=== PATIENT | female | born 1945 | race Caucasian/White ===

== ENCOUNTER 2018-08-23 21:13 | Observation (INO) | payer MEDICARE, OTHER ==
--- NOTE | 2018-08-23 21:55 | ED ---
Neurological HPI - HPI Summary HPI Summary: A 73 y/o female presents to the ED c/o difficulty finding her words. Additionally c/o headache. In the ED room, the patient has a pulse of 72 BPM, O2 saturation of 96%, and blood pressure of 159/78. Currently, the patient reports no pain or symptoms at this time. As per triage, "Pt states last night she had a brief episode of difficulty finding her words coupled with a headache. States after about five minutes she came up with some words but did not make sense in the situation she was in. States she called PCP after hours number and informed to come in for further evaluation. Pt states since last night all s/s have resolved". According to the patient, yesterday for five minutes she was incoherent. She stated that she could hear, but for those five minutes she could not get her words out. She noted that the symptoms she was experiencing was coupled with a low-grade headache that lasted for a couple hours. She noted prior to the symptoms, she was fine. She stated that she normally has low blood pressure, but today it is usually high. She denies any weakness, strokes, and irregular heartbeats. SHx of no smoking, but does have 1 glass of wine at night. No medications. - History of Current Complaint Chief Complaint: EDGeneral Stated Complaint: GENERAL Time Seen by Provider: 08/23/18 21:31 Hx Obtained From: Patient Onset/Duration: Sudden Onset, Started days ago, Resolved Timing: Sudden Onset Current Severity: None Number of Seizures: 0 Pain Intensity: 0 Pain Scale Used: 0-10 Numeric Character: Other: - DIFFICULT FINDING HER WORDS Syncope Timin Number of Episodes: 0 Aggravating: Nothing Alleviating: Nothing Associated Signs and Symptoms: Positive: Headache - RESOLVED - Allergy/Home Medications Allergies/Adverse Reactions: Allergies Allergy/AdvReac Type Severity Reaction Status Date / Time Penicillins Allergy Rash Verified 08/23/18 21:20 Sulfa (Sulfonamide Allergy Facial Verified 08/23/18 21:20 Antibiotics) Redness/Flushing KIWI FRUIT Allergy Severe EYE Uncoded 08/23/18 21:20 SWELLING PMH/Surg Hx/FS Hx/Imm Hx Endocrine/Hematology History: Denies: Hx Anticoagulant Therapy, Hx Blood Disorders, Hx Blood Transfusions, Hx Diabetes, Hx Sickle Cell Disease, Hx Thyroid Disease, Hx Anemia, Hx Unexplained Bleeding Cardiovascular History: Denies: Hx Hypertension Respiratory History: Denies: Hx Asthma, Hx Chronic Obstructive Pulmonary Disease (COPD) GI History: Denies: Hx Cirrhosis, Hx Crohn's Disease, Hx Diverticulosis, Hx Gastrointestinal Bleed, Hx Hiatal Hernia, Hx Irritable Bowel, Hx Jaundice, Hx Obstructive Bowel, Hx Ileostomy, Hx Ulcer Musculoskeletal History: Reports: Hx Arthritis, Hx Back Problems, Hx Tendonitis Denies: Hx Bursitis, Hx Congenital Bone Abnormalities, Hx Fibromyalgia, Hx Gout, Hx Orthopedic Injury, Hx Osteoporosis - osteopenia, Hx Scoliosis Sensory History: Reports: Hx Contacts or Glasses, Hx Vision Problem Denies: Hx Eye Prosthesis, Hx Glaucoma, Hx Macular Degeneration, Hx Deafness , Hx Hearing Aid Opthamlomology History: Reports: Hx Contacts or Glasses, Hx Vision Problem Denies: Hx Eye Prosthesis, Hx Glaucoma, Hx Macular Degeneration - Surgical History Surgery Procedure, Year, and Place: PER PATIENT, NO PRIOR SURGERIES NOTED. Infectious Disease History: No Infectious Disease History: Denies: Hx Clostridium Difficile, Hx Hepatitis, Hx Human Immunodeficiency Virus (HIV), Hx of Known/Suspected MRSA, Hx Shingles, Hx Tuberculosis, Hx Known/ Suspected VRE, Hx Known/Suspected VRSA, History Other Infectious Disease, Traveled Outside the [place] in Last 30 Days - Family History Known Family History: Negative: Hypertension, Diabetes - Social History Alcohol Use: Daily Alcohol Amount: GLASS OF WINE Substance Use Type: Reports: None Smoking Status (MU): Never Smoked Tobacco Review of Systems Negative: Fever Negative: Palpitations Neurological: Other - POSITIVE: DIFFICULT FINDING HER WORDS, RESOLVED Positive: Headache - RESOLVED. Negative: Weakness All Other Systems Reviewed And Are Negative: Yes Physical Exam - Summary Physical Exam Summary: Appearance: Well appearing, no pain distress. Normal exam. Skin: warm, dry, reflects adequate perfusion Head/face: normal Eyes: EOMI, MIRA ENT: normal Neck: supple, non-tender Respiratory: CTA, breath sounds present Cardiovascular: RRR, pulses symmetrical Abdomen: non-tender, soft Musculoskeletal: normal, strength/ROM intact Neuro: normal, sensory motor intact, A&Ox3 NIH: 0 GCS: 15 Triage Information Reviewed: Yes Vital Signs On Initial Exam: Initial Vitals Temp Pulse Resp BP Pulse Ox 99.4 F 74 16 166/66 100 08/23/18 21:14 08/23/18 21:14 08/23/18 21:14 08/23/18 21:14 08/23/18 21:14 Vital Signs Reviewed: Yes - Chavo Coma Scale Best Eye Response: 4 - Spontaneous Best Motor Response: 6 - Obeys Commands Best Verbal Response: 5 - Oriented Coma Scale Total: 15 Diagnostics - Vital Signs Vital Signs Temp Pulse Resp BP Pulse Ox 08/23/18 21:14 99.4 F 74 16 166/66 100 - Laboratory Result Diagrams: 08/23/18 21:45 08/23/18 21:45 Lab Statement: Any lab studies that have been ordered have been reviewed, and results considered in the medical decision making process. - CT BRAIN CT CT Interpretation Completed By: Radiologist Summary of CT Findings: 1. There is age-related diffuse cerebral and cerebellar volume loss and chronic microvascular ischemic disease. 2. No CT signs of hemorrhage or acute infarct. MRI brain with diffusion. weighted imaging is more accurate than CT for detection of acute infarct. ED PHYSICIAN REVIEWED THIS RADIOLOGY REPORT. - EKG 2146 Cardiac Rate: NL - 61 BPM EKG Rhythm: Sinus Rhythm - 61 BPM Summary of EKG Findings: LBBB NIH Scale - NIH Scale Level of Consciousness: Alert/Keenly Responsive Ask Patient the Month and His/Her Age: Both Correct Ask Pt to Open/Close Eyes and Animal Ecologist/Release Non-Paretic Hand: Both Correctly Best Gaze (Only Horizontal Eye Movement): Normal Visual Field Testing: No Visual Loss Facial Paresis-Pt to Smile & Close Eyes or Grimace Symmetry: Normal/Symmetrical Motor Function - Right Arm: No Drift-Holds 10 Seconds Motor Function - Left Arm: No Drift-Holds 10 Seconds Motor Function - Right Leg: No Drift-Holds 10 Seconds Motor Function - Left Leg: No Drift-Holds 10 Seconds Limb Ataxia-Must be out of Proportion to Weakness Present: Absent Sensory (Use Pinprick to Test Arms/Legs/Trunk/Face): Normal Best Language (Describe Picture, Name Items): No Aphasia Dysarthria (Read Several Words): Normal Extinction and Inattention: No Abnormality Total Score: 0 Course/Dx - Course Course Of Treatment: A 73 y/o female presents to the ED c/o difficulty finding her words. Additionally c/o headache. In the ED room, the patient has a pulse of 72 BPM, O2 saturation of 96%, and blood pressure of 159/78. Currently, the patient reports no pain or symptoms at this time. According to the patient, yesterday for five minutes she was incoherent. She stated that she could hear, but for those five minutes she could not get her words out. She noted that the symptoms she was experiencing was coupled with a low-grade headache that lasted for a couple hours. She noted prior to the symptoms, she was fine. She stated that she normally has low blood pressure, but today it is usually high. She denies any weakness, strokes, and irregular heartbeats. Physical examination was unremarkable. NIH stroke scale 0. A Brain CT revealed 1. There is age- related diffuse cerebral and cerebellar volume loss and chronic microvascular ischemic disease. 2. No CT signs of hemorrhage or acute infarct. MRI brain with diffusion weighted imaging is more accurate than CT for detection of acute infarct. GCS: 15. An EKG revealed NSR of 61 BPM, LBBB. Hematology, Chemistry, and urinalysis screens were done. No significant laboratory abnormalities were found. In the ED course, the patient received no medications. Patient care was discussed with hospitalist, Dr. Tamara Ruiz, who accepts patient for admission. Patient care was also discussed with neurologist, Dr. Marcelo, who will see patient in the morning. Patient will be admitted with a diagnosis of TIA. Patient is agreeable with this plan. - Differential Dx Differential Diagnoses Neuro: Positive: Cerebrovascular Accident, Intracranial Bleed, Transient Ischemic Attack - Diagnoses Provider Diagnoses: TIA (transient ischemic attack) - Physician Notifications Discussed Care Of Patient With: Tamara Ruiz Time Discussed With Above Provider: 22:40 Instructed by Provider To: Other - ACCEPTS PATIENT FOR ADMISSION. BRENT AT 2249 - WILL SEE PATIENT TOMORROW MORNING. - Critical Care Time Critical Care Time: 30-74 min Discharge - Sign-Out/Discharge Documenting (check all that apply): Patient Departure - ADMIT, Sign-Out Patient - PRESTON Signing out patient TO: Tamara Ruiz Receiving patient FROM: Musa Wiggins - Discharge Plan Condition: Stable Disposition: ADMITTED TO [facility] Referrals: Mile Ribeiro MD [Primary Care Provider] - - Billing Disposition and Condition Condition: STABLE Disposition: Admitted to [facility] - Attestation Statements Document Initiated by Scribe: Yes Documenting Scribe: Huseyin Macias Provider For Whom Scribe is Documenting (Include Credential): Musa Wiggins MD Scribe Attestation: I, Huseyin Macias, scribed for Musa Wiggins MD on 08/23/18 at 2346. Scribe Documentation Reviewed: Yes Provider Attestation: The documentation as recorded by the scribeHuseyin accurately reflects the service I personally performed and the decisions made by me, Musa Wiggins MD Status of Scribe Document: Viewed
[2018-08-23 21:57] LABS: ABS Basophils 0.1 10^3/ul (0-0.2); ABS Eosinophils 0.2 10^3/ul (0-0.6); ABS Monocytes 0.5 10^3/ul (0-0.8); ABS Neutrophils 3.9 10^3/ul (1.5-7.7); ABS Nucleated RBC 0 10^3/ul; Eosinophil % 3.1 %; Hematocrit 42 % (35-47); Hemoglobin 14.3 g/dl (12.0-16.0); Lymphocyte % 29.8 %; Mean Corpuscular HGB Conc 34 g/dl (31-36); Mean Corpuscular Hemoglobin 31 pg (27-31); Mean Corpuscular Volume 92 fL (80-97); Mean Platelet Volume 8.2 fL (7.4-10.4); Nucleated Red Blood Cells % 0; Platelet Count 252 10^3/ul (150-450); Red Blood Count 4.56 10^6/ul (4.00-5.40); Red Cell Distribution Width 13 % (10.5-15); White Blood Count 6.6 10^3/ul (3.5-10.8)
[2018-08-23 22:06] LABS: Activated Partial Thrombo Time 32.7 seconds (26.0-36.3); INR 0.83 (0.77-1.02)
[2018-08-23 22:11] LABS: Albumin 4.2 g/dL (3.2-5.2); Albumin/Globulin Ratio 1.7 (1-3); BUN/Creatinine Ratio 28.6 (8-20); Calcium 9.6 mg/dL (8.6-10.3); EGFR Non-African American 73.5 (>60); Globulin 2.5 g/dL (2-4); Total Bilirubin 0.4 mg/dL (0.2-1.0); Total Protein 6.7 g/dL (6.4-8.9)
[2018-08-23 22:48] LABS: Urine Appearance Clear; Urine Bacteria Absent (Absent); Urine Bilirubin Negative (Negative); Urine Blood Negative (Negative); Urine Color Straw; Urine Glucose Negative (Negative); Urine Ketones Negative (Negative); Urine Nitrite Negative (Negative); Urine Protein Negative (Negative); Urine Red Blood Cell Absent (Absent); Urine Specific Gravity 1.008 (1.010-1.030); Urine Urobilinogen Negative (Negative); Urine White Blood Cell 1+(6-10/hpf) (Absent)
[2018-08-23] MEDS ORDERED: Acetaminophen TAB* 325 MG PO PRN (23:35)
[2018-08-24] MEDS: Aspirin 81 mg CHEW TAB* 81 MG TAB.CHEW PO SCH ×2 (01:08→07:29)
--- NOTE | 2018-08-24 02:26 | HP ---
CC: Dr. Mile Ribeiro * HISTORY AND PHYSICAL: DATE OF ADMISSION: 08/23/18 PRIMARY CARE PROVIDER: Dr. Mile Ribeiro. CHIEF COMPLAINT: An episode of difficulty word-finding 24 hours prior. HISTORY OF PRESENT ILLNESS: Mrs. York is a 73-year-old female with no significant past medical history apart from 2 episodes of Lyme in the past, who presented to the hospital 24 hours after an episode of problems with word- finding. 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 She was at the [employer] and she walked into the room where she would teach and she noticed that the lights were awfully bright, and at the same point, she had mild frontal headache and was unable to find words to communicate something with one of the prisoners. She stated that instead other words came out that were entirely different. She does not remember what she said at that point, but she denies any slurred speech. She stated that all of that lasted approximately 5 minutes and resolved spontaneously. The headaches resolved also. The patient stated that she in the past had not been prone to headaches and the headache was very mild. She has not had anything unusual happen to her before and after the episode. She called Dr. Varela today to communicate the concerns about the problems that had occurred last night and she was asked to come into the ED for evaluation. Here, she is neurologically intact and she is going to be placed on overnight observation with a diagnosis of possible TIA. PAST MEDICAL HISTORY: 1. History of mild arthritis. 2. History of dyslipidemia, currently not on treatment. 3. History of Lyme twice in the past. PAST SURGICAL HISTORY: None. MEDICATIONS: Current medications are [id number] arthritis medications as well as multivitamin. She does not take aspirin. ALLERGIES: Includes PENICILLIN, SULFA, and KIWI FRUIT. FAMILY HISTORY: Positive for 2 strokes in father and mother who had history of heart disease, at the age of 93. SOCIAL HISTORY: The patient denies any tobacco or drug use. She drinks a glass of wine almost on a daily basis. She lives with her who would be her surrogate. She is a full code. REVIEW OF SYSTEMS: Please see history of present illness. All the remaining 12 systems were reviewed with the patient and were otherwise negative. PHYSICAL EXAMINATION GENERAL: The patient is a very pleasant 73-year-old female, who is in no acute distress. Alert, awake, and oriented x3. VITAL SIGNS: Blood pressure of 153/77, heart rate of 79 and regular, respiratory rate 18, oxygen saturation 97% on room air, temperature of 99.4. HEENT: Head: Atraumatic, normocephalic. Eyes: Pupils are equal, reactive to light and accommodation. Oropharynx clear. Mucosa moist. NECK: Supple. No JVD. No bruits bilaterally. RESPIRATORY: Clear to auscultation bilaterally. CARDIOVASCULAR: Regular rate and rhythm. No murmur. ABDOMEN: Soft, nontender. Bowel sounds are present in all 4 quadrants. EXTREMITIES: There is no edema. Pulses are +2 bilaterally. No clubbing or cyanosis. NEURO EVALUATION: Speech is clear. Cranial nerves II through XII are grossly intact. Motor strength is 5/5 bilaterally. SKIN: On evaluation of the skin, no ecchymotic areas or rashes noted. PSYCHIATRIC EVALUATION: Oriented x3 with no evidence of anxiety or depression. DIAGNOSTIC STUDIES/LAB DATA: Laboratory data showed a white blood cell count of 6.6, hemoglobin of 14.3, hematocrit of 42, and platelets of 152. Sodium was 139, potassium 4.0, chloride 107, carbon dioxide 24, BUN 22, creatinine 0.7. Liver functions are unremarkable. Troponin of 0. Brain CT, impression: "There is age-related diffuse cerebellar volume loss and chronic microvascular ischemic disease. No CT signs of hemorrhage or acute infarct. MRI with diffusion-weighted imaging is more accurate than CT for detection of acute infarct." The patient's EKG showed left bundle-branch block. There was no old EKG available for comparison. ASSESSMENT AND PLAN: 1. Symptoms of difficulty word-finding in patient who also at that point had noted that the lights were very bright and she had at that point what appeared to be mild photophobia and mild headache. At this point, differential includes transient ischemic attack versus atypical migraine. The patient is going to be placed on overnight observation on planning and analysis manager bed. Dr. Marcelo was notified from neurology service and will see the patient in the morning. The patient is going to be placed on aspirin at 81 mg daily. Her lipid profile was also going to be checked in the morning. Neuro checks are going to be continued throughout her hospital stay. I will obtain echo with bubble study as well as CT angiogram of the head and neck. Unfortunately, we do not have MRI capabilities over the weekend unless it is recommended further by Neurology. 2. Left bundle-branch block. The patient has no history of left bundle-branch block according to her medical records and there is no old EKG available in the system. I will obtain transthoracic echocardiogram to evaluate it further. 3. The patient's code status is full. 4. For DVT prophylaxis, the patient is going to be placed on heparin subcutaneously. TIME SPENT: Approximately 62 minutes were spent on the admission of this patient, more than half that time was spent [id number] with the patient during the interview and physical exam. [id number] #: [id number] RACHNA
[2018-08-24 05:17] LABS: HDL Cholesterol 69.4 mg/dL
[2018-08-24] MEDS ORDERED: Heparin VIAL(*) 5000 UNITS/ML VIAL (FIVE THOUSAND) SUBCUT SCH (06:00)
[2018-08-24] MEDS ORDERED: Iohexol 350* (CONTRAST) 500 ML MDV IV ONE (08:29)
[2018-08-24 08:55] VITALS: BP 126/58
--- NOTE | 2018-08-24 10:53 | PN ---
Subjective - Subjective Reason for Note: Discharge Note History: Discharge summary: She called me last night at 20:30. 25 hours before she had an episode of dysphasia with word finding difficulties for 5 mins and this was followed by headache for 2 hours. She has had neurological symptoms since. She has been in the hospital overnight and is feeling back to normal today. Active Problems: Active Problems Dysphasia (Acute) R47.02 TIA (transient ischemic attack) (Acute) G45.9 Hypercholesterolemia (Chronic) E78.00 LBBB (left bundle branch block) (Chronic) I44.7 Current Medications: Current Medications Acetaminophen (Tylenol Tab*) 650 mg PO Q4H PRN PRN Reason: FEVER/PAIN Aspirin (Aspirin 81 Mg Chew Tab*) 81 mg PO DAILY [facility] Last Admin: 08/24/18 07:29 Dose: 81 mg Heparin Sodium (Porcine) (Heparin Vial(*)) 5,000 units SUBCUT Q8HR [facility] Last Admin: 08/24/18 04:58 Dose: Not Given - Review of Systems Pulmonary: Negative: Cough, Sputum Cardiology: Negative: Chest Pain, Shortness of Breath, Palpitations, Swelling of Ankles, Edema, Faintness, Syncope, Claudication Gastroenterology: Negative: Abdominal Pain, Nausea, Vomiting, Change in Bowel Habits Genital - Urinary: Negative: Dysuria, Hematuria Neurology: Positive: Change in Speech Negative: Headache, Migraines, Change in Vision, Diplopia, Dizziness, Change in Balancing, Change in Sphincter Function, Change in Walking, Numbness\ Paresthesiae, Unexplained Weakness, Hx of Stroke\TIA, Hx of Seizures Psychiatry: Positive: Normal Home Medications: Home Medications Medication Instructions Recorded Confirmed Type Bifidobacterium Infantis [Align] 4 mg PO DAILY 10/17/13 08/24/18 History Calcium Carbonate-Vitamin D 1 tab PO DAILY 10/17/13 08/24/18 History [Calcium 600 + D] Glucosamine Sulfate [Glucosamine] 500 mg PO DAILY 10/17/13 08/24/18 History Multivitamins/Minerals TAB* [Thera 1 tab PO DAILY 10/17/13 08/24/18 History M Plus TAB*] Phytosterol/Vit D3/Fish Oil 1 cap PO DAILY 10/17/13 08/24/18 History [Cholesterol Relief] Allergies: Allergies Allergy/AdvReac Type Severity Reaction Status Date / Time Penicillins Allergy Rash Verified 08/24/18 00:16 Sulfa (Sulfonamide Allergy Facial Verified 08/24/18 00:16 Antibiotics) Redness/Flushing KIWI FRUIT Allergy Severe EYE Uncoded 08/24/18 00:16 SWELLING Objective - Vital Signs Vital Signs: Vital Signs 08/23/18 08/23/18 08/23/18 21:14 21:29 21:30 Temperature 99.4 F Pulse Rate 74 68 71 Respiratory 16 Rate Blood Pressure 166/66 159/78 (mmHg) O2 Sat by Pulse 100 97 96 Oximetry 08/23/18 08/23/18 08/23/18 22:00 22:59 23:00 Temperature Pulse Rate 70 79 79 Respiratory 19 18 Rate Blood Pressure 153/77 (mmHg) O2 Sat by Pulse 97 97 97 Oximetry 08/23/18 08/23/18 08/24/18 23:29 23:59 00:00 Temperature Pulse Rate 73 72 Respiratory 15 18 18 Rate Blood Pressure 135/82 132/63 (mmHg) O2 Sat by Pulse 94 95 Oximetry 08/24/18 08/24/18 08/24/18 00:19 01:09 01:10 Temperature 98.4 F 98.4 F 98.4 F Pulse Rate 70 66 66 Respiratory 16 16 16 Rate Blood Pressure 132/63 144/59 144/59 (mmHg) O2 Sat by Pulse 94 97 97 Oximetry 08/24/18 08/24/18 03:24 07:25 Temperature 97.8 F 98.2 F Pulse Rate 57 58 Respiratory 16 20 Rate Blood Pressure 130/53 126/58 (mmHg) O2 Sat by Pulse 99 97 Oximetry - Intake and Output Intake and Output: Intake & Output 08/21/18 08/22/18 08/23/18 08/24/18 11:59 11:59 11:59 11:59 Intake Total 230 Balance 230 Weight 122 lb Intake: Oral 230 ADLs: Meal Record Start: 08/24/18 00: 15 Freq: DAILY@0900,1400,1800 Status: Active Protocol: Created 08/24/18 00:15 System (Rec: 08/24/18 00:15 System [email or web address]) Document 08/24/18 09:00 [id number] (Rec: 08/24/18 10:34 [id number]) Intake and Output Start: 08/23/18 21: 18 Freq: Status: Active Protocol: Created 08/23/18 21:18 System (Rec: 08/23/18 21:18 System [id number]) Intake and Output Start: 08/24/18 00: 15 Freq: DAILY@0600,1400,2200 Status: Active Protocol: Created 08/24/18 00:15 System (Rec: 08/24/18 00:15 System [id number]) Document 08/24/18 03:13 [id number] (Rec: 08/24/18 03:14 [id number]) - Physical Exam General Physical Exam Comment: She looks well General: No Cyanosis, No Anemia, No Jaundice, No Clubbing Skin: Normal: Rash, Lesions Head: Yes Normocephalic Thyroid Function: Clinically Euthyroid Endocrine: No Central Obesity, No Hirsuitism, No Virilism, No Acromegaly, No Vitiligo, No Flushing, No Acanthosis nigricans, No Violaceious striae, No [place] Syndrome, No Buccal pigmenatation, No Han Crease Pigmentation Lungs and Chest: Yes: Chest Expansion Full, Chest Expansion Symetrica, Percussion Note Resonant, Vessicular Breath Sounds. No: Crackles, Wheezes, Respiratory Distress, Use of Accessory Muscles Heart Rate and Rhythm: Regular JVP: Not Elevated Additional Cardiovascular: Yes: Normal Heart Sounds. No: Heart Murmur, Carotid Bruits, Pedal Edema Abdominal Exam: Yes: Soft, Bowel Sounds Present. No: Distention, Abdominal Mass , Hepatomegaly, Abdominal Tenderness - Extremities Cranial Nerves II-XII Intact: Yes Limbs: Normal Power, Normal Tone, Normal Coordination - finger nose, heel-flores, rapid alt movt Reflexes: Bilateral: Plantar - downgoing - Neuro Orientation: A/O x3 Psychiatric: Normal Speech: Normal Results - Results Lab Results: Laboratory Results - last 24 hr 08/23/18 08/23/18 08/23/18 21:45 21:45 21:45 WBC 6.6 RBC 4.56 Hgb 14.3 Hct 42 MCV 92 MCH 31 MCHC 34 RDW 13 Plt Count 252 MPV 8.2 Neut % (Auto) 59.2 Lymph % (Auto) 29.8 Pratt % (Auto) 7.0 Eos % (Auto) 3.1 Baso % (Auto) 0.9 Absolute Neuts (auto) 3.9 Absolute Lymphs (auto) 2.0 Absolute Monos (auto) 0.5 Absolute Eos (auto) 0.2 Absolute Basos (auto) 0.1 Absolute Nucleated RBC 0 Nucleated RBC % 0 INR (Anticoag Therapy) 0.83 APTT 32.7 Sodium 139 Potassium 4.0 Chloride 107 Carbon Dioxide 24 Anion Gap 8 BUN 22 Creatinine 0.77 Est GFR ( Amer) 88.9 Est GFR (Non-Af Amer) 73.5 BUN/Creatinine Ratio 28.6 H Glucose 115 H Calcium 9.6 Total Bilirubin 0.40 AST 18 ALT 12 Alkaline Phosphatase 56 Troponin I 0.00 Total Protein 6.7 Albumin 4.2 Globulin 2.5 Albumin/Globulin Ratio 1.7 Triglycerides Cholesterol LDL Cholesterol HDL Cholesterol Urine Color Urine Appearance Urine pH Ur Specific [place] Urine Protein Urine Ketones Urine Blood Urine Nitrate Urine Bilirubin Urine Urobilinogen Ur Leukocyte Esterase Urine WBC (Auto) Urine RBC (Auto) Urine Bacteria Urine Glucose 08/23/18 08/24/18 22:35 04:44 WBC RBC Hgb Hct MCV MCH MCHC RDW Plt Count MPV Neut % (Auto) Lymph % (Auto) Pratt % (Auto) Eos % (Auto) Baso % (Auto) Absolute Neuts (auto) Absolute Lymphs (auto) Absolute Monos (auto) Absolute Eos (auto) Absolute Basos (auto) Absolute Nucleated RBC Nucleated RBC % INR (Anticoag Therapy) APTT Sodium Potassium Chloride Carbon Dioxide Anion Gap BUN Creatinine Est GFR ( Amer) Est GFR (Non-Af Amer) BUN/Creatinine Ratio Glucose Calcium Total Bilirubin AST ALT Alkaline Phosphatase Troponin I Total Protein Albumin Globulin Albumin/Globulin Ratio Triglycerides 55 Cholesterol 225 LDL Cholesterol 145 HDL Cholesterol 69.4 Urine Color Straw Urine Appearance Clear Urine pH 5.0 Ur Specific [place] 1.008 L Urine Protein Negative Urine Ketones Negative Urine Blood Negative Urine Nitrate Negative Urine Bilirubin Negative Urine Urobilinogen Negative Ur Leukocyte Esterase 2+ A Urine WBC (Auto) 1+(6-10/hpf) A Urine RBC (Auto) Absent Urine Bacteria Absent Urine Glucose Negative Radiology Results: Patient Name: RADHA SORTO Medical Record#: [id number] Ordering Physician: Musa Wiggins MD Acct.#: [id number] : 1945 Age: 73 Sex: F Location: EMERGENCY DEPARTMENT Exam Date: 08/23/182136 ADM Status: REG ER Order Information: CT BRAIN WO Accession Number: [id number] CPT: 67993 EXAM: CT Head Without Contrast EXAM DATE/TIME: 08/23/2018 9:58 PM CLINICAL HISTORY: 73 years old, female; Signs and symptoms; Speech disturbance; Aphasia; Additional info: Aphasia yesterday TECHNIQUE: Axial computed tomography images of the head/brain without contrast. All CT scans at this facility use at least one of these dose optimization techniques: automated exposure control; mA and/or kV adjustment per patient size (includes targeted exams where dose is matched to clinical indication); or iterative reconstruction. COMPARISON: BRAIN WO CT BRAIN WO 10/17/2013 10:50 AM FINDINGS: Brain: There is age-related diffuse cerebral and cerebellar volume loss and chronic microvascular ischemic disease. Ventricles: Normal. No ventriculomegaly. Bones/joints: Normal. No acute fracture. Sinuses: Normal as visualized. No acute sinusitis. Mastoid air cells: Normal as visualized. No mastoid effusion. Soft tissues: Normal. IMPRESSION: 1. There is age-related diffuse cerebral and cerebellar volume loss and chronic microvascular ischemic disease. 2. No CT signs of hemorrhage or acute infarct. MRI brain with diffusion weighted imaging is more accurate than CT for detection of acute infarct. To contact [facility] with a general question: [facility] - [phone] For direct physician to physician contact: Physician Hotline - [phone] [facility] ([facility] Facility ID #[id number]) <Electronically signed by Cj Felix MD in OV> 08/23/182239 Dictated By: Cj Felix MD Dictated Date/Time: 08/23/182239 Patient Name: RADHA SORTO Marta Medical Record#: [id number] Ordering Physician: Tamara Ruiz MD Acct.#: [id number] : 1945 Age: 73 Sex: F Location: [address] [place] [address] MEDICAL/TELEMETRY Exam Date: 08/24/18 0700 ADM Status: ADM Mu Order Information: CTA HEAD/NECK Accession Number: [id number] CPT: 17919 Indication: Transient ischemic attack Contrast: Administered 80.2 ml of OMNIPAQUE 350 mg/ml CTA of the neck and head was performed after IV contrast administration. Coronal and sagittal reconstructed images were obtained. The aortic arch is unremarkable. The origins of the great vessels are unremarkable. Bilaterally the common carotid arteries demonstrates normal caliber. The internal carotid arteries demonstrates no evidence of calcific plaque. The cervical portions of the internal carotid artery demonstrates no carotid artery dissection. The vertebral arteries demonstrates normal origins. Vertebral arteries demonstrate normal caliber with a dominant left vertebral artery. No vertebral artery dissection is noted. Evaluation of the intracranial vessels demonstrates the intracavernous portions of the internal carotid arteries to be unremarkable. Anterior and middle cerebral arteries are unremarkable. Ophthalmic arteries are unremarkable. No aneurysmal dilatation or branch occlusion is identified. The basilar artery and posterior cerebral arteries are grossly unremarkable with no evidence of aneurysmal dilatation or branch occlusion. The oral pharynx and nasopharynx are grossly unremarkable. No prevertebral soft tissue swelling is noted. Submandibular glands are unremarkable. Paranasal sinuses are otherwise unremarkable. IMPRESSION: No evidence of carotid artery dissection or vertebral artery dissection. No definite evidence of plaque at the carotid artery bifurcation. Minimal calcific plaque is noted in the right internal carotid artery in the intracavernous portion. No aneurysmal dilatation or branch occlusion is identified. <Electronically signed by Alicia Watters MD in OV> 08/24/18911 Dictated By: Alicia Watters MD Dictated Date/Time: 08/24/18911 Transcribed Date/Time: 08/24/18908 Copy to: EKG Report: Sinus rhythm 61 TN 202 QTC 432 QRS axis 5 LBBB Assessment - Problem List Assessment: Patient Problems Dysphasia (Acute) TIA (transient ischemic attack) (Acute) Hypercholesterolemia (Chronic) LBBB (left bundle branch block) (Chronic) Plan: Dysphasia (Acute)TIA (transient ischemic attack) (Acute) She had a brief (5 mins) transient dysarthria. She has no history of TIAs, strokes, CAD. She has had no history of seizures or migraines. From history this is consistent with a TIA. She has had no hemorrhage and there is no evidence of significant stenosis on CTA. She is currently having a transthoracic echocardiogram. This is Saturday before X-mas and scheduling an MRI is going to be tricky and won't affect acute management. I spoke with neurology and they agreed with management plan: Aspirin 81 mg qdaily, statin and outpatient early MRI (Open MRI as patient is claustraphobic Hypercholesterolemia (Chronic) She has an elevated LDL (though her HDL is good) . I will start her on atorvastatin 20 mg qhs LBBB (left bundle branch block) (Chronic) She has not had a previous EKG for years. We are checking a transthoracic echocardiogram. I spoke with the patient. She would like to go home and not wait for a work up as an inpatient. * To start aspirin and a statin * Arrange with Dr. Mile Ribeiro an outpatient open MRI LILI * Call if any further episodes.
--- NOTE | 2018-08-24 12:20 | ECHO ---
Patient: RADHA SORTO [facility] Rec#: [id number] : 1945 Date: 08/24/2018 Age: 73y Height: 162.56 cm / 64.0 in Weight: 56.25 kg / 124.0 lbs Sex: F BSA: 1.6 Room#: 433 Admit Date#: 08/23/2018 Type: Inpatient Referring: Tamara Ruiz MD Reading: Taj Israel MD Surety Bond Agent: Dai Banks HOSSEIN CC: Mile Ribeiro MD Transthoracic Echocardiogram Indication: TIA BP: 130/53 HR: 112 Rhythm: NSR Findings History: Lyme disease,arthritis,HLD,+ family history,LBBB. Technical Comments: The study quality is good. Completed at 1136. Left Ventricle: The left ventricular chamber size is decreased. Mild global hypokinesis of the left ventricle is observed. There is mildly decreased left ventricular systolic function. The estimated ejection fraction is 45-50%. Abnormal left ventricular diastolic function is observed. Left Atrium: The left atrial chamber size is normal. Right Ventricle: The right ventricular cavity size is normal. The right ventricular global systolic function is normal. Right Atrium: The right atrial cavity size is normal. There is evidence of an atrial septal aneurysm. Noted as slight. Aortic Valve: The aortic valve is trileaflet. There is no evidence of aortic valve thickening. There is mild aortic regurgitation. There is no evidence of aortic stenosis. Mitral Valve: The mitral valve leaflets are moderately thickened. There is trace to mild mitral regurgitation. There is no evidence of mitral stenosis. Tricuspid Valve: The tricuspid valve leaflets are normal. There is mild tricuspid regurgitation. There is evidence of borderline pulmonary hypertension. There is no tricuspid stenosis. Pulmonic Valve: The pulmonic valve appears normal. There is no evidence of pulmonic regurgitation. There is no pulmonic stenosis. Pericardium: The pericardium appears normal. Aorta: The ascending aorta is not well visualized. There is no dilatation of the aortic arch. There is no dilation of the aortic root. Pulmonary Artery: The main pulmonary artery appears normal. Venous: The inferior vena cava is dilated. There is a greater than 50% respiratory change in the inferior vena cava dimension. Summary: There was not any prior study for comparison. Conclusions Mild global hypokinesis of the left ventricle is observed. There is mildly decreased left ventricular systolic function. The estimated ejection fraction is 45-50%. The right ventricular global systolic function is normal. There is mild aortic regurgitation. There is no evidence of aortic stenosis. There is trace to mild mitral regurgitation. There is mild tricuspid regurgitation. There is evidence of borderline pulmonary hypertension. The pericardium appears normal. Measurements Name Value Normal Range RVIDd (AP) 2D 2.6 cm (0.9 - 2.6) RVDdMajor (2D) 2.7 cm (2.2 - 4.4) RAd ISD 4CH 3.6 cm (3.4 - 4.9) RA (A4C)W 3.4 cm (2.9 - 4.6) IVSd (2D) 0.9 cm (0.6 - 1) LVPWd (2D) 0.7 cm (0.6 - 1) LVIDd (2D) 3.4 cm (3.6 - 5.4) LVIDs (2D) 2.8 cm - LV FS (2D) 19 % (25 - 45) Aortic Annulus 1.9 cm (1.4 - 2.6) Ao root diameter (2D) 3 cm (2.1 - 3.5) Aortic arch 2.2 cm (1.8 - 3.4) Descending Ao 0.6 cm - LA dimension (AP) 2D 2.9 cm (2.3 - 3.8) LAd ISD 4CH 4.4 cm (2.9 - 5.3) LA ISD 4CH W 3.3 cm (2.5 - 4.5) Name Value Normal Range LA ESV SP 4CH (A/L) 26 ml - LA ESV SP 2CH (A/L) 31 ml - LA ESV BP (A/L) 31 ml - LA ESV BP (A/L) index 19.28 ml/m2 - LA ESV SP 4CH (MOD) 23 ml - LA ESV SP 2CH (MOD) 28 ml - Name Value Normal Range MV E-wave Vmax 0.6 m/sec - MV deceleration time 186 msec - MV A-wave Vmax 0.9 m/sec - MV E:A ratio 0.65 ratio - LV septal e' Vmax 0.05 m/sec - LV lateral e' Vmax 0.08 m/sec - LV E:e' septal ratio 12 ratio - LV E:e' lateral ratio 7.5 ratio - Name Value Normal Range AV Vmax 1.3 m/sec - AV VTI 31.5 cm - AV peak gradient 6.98 mmHg - AV mean gradient 3.59 mmHg - LVOT Vmax 0.8 m/sec - LVOT VTI 21.3 cm - LVOT peak gradient 2.44 mmHg - LVOT mean gradient 1.36 mmHg - AR PHT 669 msec - AR peak gradient 38.24 mmHg - Name Value Normal Range TR Vmax 2.5 m/sec - TR peak gradient 25 mmHg - RAP 8 mmHg - RVSP 33 mmHg - IVC diameter 2.2 cm - Name Value Normal Range PV Vmax 0.9 m/sec - PV peak gradient 3.25 mmHg -
[2018-08-24] MEDS ORDERED: Atorvastatin* 20 MG TAB PO SCH (17:00)
== END 2018-08-24 11:30 | disposition home or self-care (01) ==
LOC: ED 21:13 → MEDTELE 23:35
PROVIDERS: ADMIT Internal Medicine; ATTEND Internal Medicine
DX: G45.9 Transient cerebral ischemic attack, unspecified (principal); M19.90 Unspecified osteoarthritis, unspecified site; Z82.3 Family history of stroke; Z88.0 Allergy status to penicillin; Z88.2 Allergy status to sulfonamides; Z79.899 Other long term (current) drug therapy
CPT/HCPCS: 36415; 70450; 70496; 70498; 80053; 80061; 81003; 81015; 84484; 85025; 85610; 85730; 87086; 93005; 93306; 96372; 99284; A9270-GY; G0378; Q9967

== ENCOUNTER 2019-10-07 11:11 | Emergency (ER) | payer OTHER ==
[2019-10-07 11:42] VITALS: BP 136/66
--- NOTE | 2019-10-07 13:07 | UC ---
General HPI - HPI Summary HPI Summary: Patient slipped and fell on ice this morning in her driveway - his left sided rib pain concerned for a rib fracture. No SOB. No CP. Worried because she has osteopenia. Also is on Plavix and baby ASA. Recently had a PFO closure Meds: Reviewed - History of Current Complaint Chief Complaint: UCTrauma Stated Complaint: FALL/RIB PAIN Time Seen by Provider: 10/07/19 12:57 Pain Intensity: 5 - Allergy/Home Medications Allergies/Adverse Reactions: Allergies Allergy/AdvReac Type Severity Reaction Status Date / Time Penicillins Allergy Rash Verified 10/07/19 11:42 Sulfa (Sulfonamide Allergy Facial Verified 10/07/19 11:42 Antibiotics) Redness/Flushing KIWI FRUIT Allergy Severe EYE Uncoded 10/07/19 11:42 SWELLING Home Medications: Home Medications Cholecalciferol (Vitamin D3) [Vitamin D3] 1 tab PO DAILY 10/07/19 [History Confirmed 10/07/19] Clopidogrel TAB* [Plavix TAB*] 1 tab PO DAILY 10/07/19 [History Confirmed ] [place]-3 Fatty Acids/Fish Oil [[place] 3 1,000 mg Softgel] 1 tab PO DAILY 10/07/19 [History Confirmed 10/07/19] PMH/Surg Hx/FS Hx/Imm Hx Previously Healthy: Yes Other History Of: Negative For: Anticoagulant Therapy - Surgical History Surgical History: Yes Surgery Procedure, Year, and Place: 2 DENTAL IMPLANTS. PFO implant 2019 - Family History Known Family History: Negative: Hypertension, Diabetes - Social History Alcohol Use: Daily Alcohol Amount: GLASS OF WINE Substance Use Type: None Smoking Status (MU): Never Smoked Tobacco - Immunization History Most Recent Influenza Vaccination: 2018 Most Recent Tetanus Shot: unknown Most Recent Pneumonia Vaccination: unknown Review of Systems All Other Systems Reviewed And Are Negative: Yes Musculoskeletal: Positive: Other: - rib pain Physical Exam Triage Information Reviewed: Yes Appearance: Well-Appearing Vital Signs: Initial Vital Signs Temp 99.1 F 10/07/19 11:33 Pulse 69 10/07/19 11:33 Resp 18 10/07/19 11:33 BP 136/66 10/07/19 11:33 Pulse Ox 99 10/07/19 11:33 ENT: Positive: Normal ENT inspection Respiratory: Positive: Lungs clear, Normal breath sounds Cardiovascular: Positive: RRR, No Murmur Musculoskeletal: Positive: Other: - mild light ecchymosis over left lateral upper rib region with pain to palpation. No step off or deformity Diagnostics - Radiology Rib xray Radiology Interpretation Completed By: Radiologist Summary of Radiographic Findings: Negative for left rib fracture or pneumothorax Course/Dx - Course Course Of Treatment: This is a 74 yr old with left sided rib pain after slipping and falling this AM Xray negative Rib contusion Plan Recommend tylenol as needed for pain Continue to take deep breaths Can also use ibuprofen sparingly for pain as directed If symptoms persist or worsen, recommend follow up with PCP or return to urgent care - Diagnoses Provider Diagnosis: Contusion of rib on left side Discharge ED - Sign-Out/Discharge Documenting (check all that apply): Patient Departure All imaging exams completed and their final reports reviewed: Yes - Discharge Plan Condition: Good Disposition: HOME Patient Education Materials: Rib Contusion (ED) Referrals: Mile Ribeiro MD [Primary Care Provider] - Additional Instructions: Recommend tylenol as needed for pain Continue to take deep breaths Can also use ibuprofen sparingly for pain as directed If symptoms persist or worsen, recommend follow up with PCP or return to urgent care - Billing Disposition and Condition Condition: GOOD Disposition: Home
== END 2019-10-07 14:07 | disposition home or self-care (01) ==
LOC: UCEAST 11:11
DX: S20.212A Contusion of left front wall of thorax, initial encounter (principal); W00.0XXA Fall on same level due to ice and snow, initial encounter; Y92.9 Unspecified place or not applicable; Z88.0 Allergy status to penicillin; Z88.2 Allergy status to sulfonamides; Z91.018 Allergy to other foods
CPT/HCPCS: 99211; G0463

== ENCOUNTER 2019-11-16 14:33 | Emergency (ER) | payer OTHER ==
--- NOTE | 2019-11-16 16:04 | ED ---
Throat Pain/Nasal Congestion - HPI Summary HPI Summary: Patient is a 74 y/o F presenting to [facility] accompanied by with a chief complaint of constant epistaxis s/p fall this afternoon. She reports that she had been walking at the store and slipped on a tomato. She fell onto her left knee, which doesnt have any pain, but she hit her face. She is now suffering from constant epistaxis which was initially from the b/l nares but is only present in the left now. She endorses a mild headache. She denies any LOC, visual changes, or neck pain. She is not in any pain now. Current on baby ASA for previous TIA. Past medical history includes LBBB, HLD. Nonsmoker, daily EtOH (1x glass wine), no substance use. Medications reviewed. Allergies noted. - History of Current Complaint Chief Complaint: EDEpistaxis Time Seen by Provider: 11/16/19 15:55 Hx Obtained From: Patient Onset/Duration: Sudden Onset, Still Present Severity: Mild Associated Signs And Symptoms: Positive: Negative Cough: None - Allergies/Home Medications Allergies/Adverse Reactions: Allergies Allergy/AdvReac Type Severity Reaction Status Date / Time Penicillins Allergy Rash Verified 11/16/19 14:36 Sulfa (Sulfonamide Allergy Facial Verified 11/16/19 14:36 Antibiotics) Redness/Flushing KIWI FRUIT Allergy Severe EYE Uncoded 11/16/19 14:36 SWELLING Home Medications: Home Medications Bifidobacterium Infantis [Align] 4 mg PO DAILY 10/17/13 [History Confirmed 10/07] Glucosamine Sulfate [Glucosamine] 500 mg PO DAILY 10/17/13 [History Confirmed ] Multivitamins/Minerals TAB* [Thera M Plus TAB*] 1 tab PO DAILY 10/17/13 [ History Confirmed 10/07/19] Aspirin 81 mg CHEW TAB* 81 mg PO DAILY tab.chew 08/24/18 [Rx Confirmed 10/07/19 ] Atorvastatin* [Lipitor 20 MG*] 20 mg PO 1700 #90 tab 08/24/18 [Rx Confirmed 01/19] Cholecalciferol (Vitamin D3) [Vitamin D3] 1 tab PO DAILY 10/07/19 [History Confirmed 10/07/19] Clopidogrel TAB* [Plavix TAB*] 1 tab PO DAILY 10/07/19 [History Confirmed ] [place]-3 Fatty Acids/Fish Oil [[place] 3 1,000 mg Softgel] 1 tab PO DAILY 10/07/19 [History Confirmed 10/07/19] DOXYcycline CAP(*) [DOXYcycline 100MG CAP(*)] 100 mg PO BID #10 cap 11/16/19 [Rx ] PMH/Surg Hx/FS Hx/Imm Hx Endocrine/Hematology History: Denies: Hx Anticoagulant Therapy, Hx Blood Disorders, Hx Blood Transfusions, Hx Diabetes, Hx Sickle Cell Disease, Hx Thyroid Disease, Hx Anemia, Hx Unexplained Bleeding Cardiovascular History: Reports: Hx Hypercholesterolemia, Other Cardiovascular Problems/Disorders - LEFT BUNDLE BRANCH BLOCK Denies: Hx Hypertension, Hx Pacemaker/ICD Respiratory History: Denies: Hx Asthma, Hx Chronic Obstructive Pulmonary Disease (COPD) GI History: Denies: Hx Cirrhosis, Hx Crohn's Disease, Hx Diverticulosis, Hx Gastrointestinal Bleed, Hx Hiatal Hernia, Hx Irritable Bowel, Hx Jaundice, Hx Obstructive Bowel, Hx Ileostomy, Hx Ulcer History: Denies: Hx Renal Disease Musculoskeletal History: Reports: Hx Arthritis, Hx Back Problems, Hx Tendonitis Denies: Hx Bursitis, Hx Congenital Bone Abnormalities, Hx Fibromyalgia, Hx Gout, Hx Orthopedic Injury, Hx Osteoporosis - osteopenia, Hx Scoliosis Sensory History: Reports: Hx Contacts or Glasses, Hx Vision Problem Denies: Hx Eye Prosthesis, Hx Glaucoma, Hx Macular Degeneration, Hx Deafness , Hx Hearing Aid Opthamlomology History: Reports: Hx Contacts or Glasses, Hx Vision Problem Denies: Hx Eye Prosthesis, Hx Glaucoma, Hx Macular Degeneration Neurological History: Denies: Hx Headaches, Hx Seizures, Hx Transient Ischemic Attacks (TIA) Psychiatric History: Denies: Hx Panic Disorder - Surgical History Surgical History: Yes Surgery Procedure, Year, and Place: 2 DENTAL IMPLANTS. PFO implant 2019 Infectious Disease History: No Infectious Disease History: Denies: Hx Clostridium Difficile, Hx Hepatitis, Hx Human Immunodeficiency Virus (HIV), Hx of Known/Suspected MRSA, Hx Shingles, Hx Tuberculosis, Hx Known/ Suspected VRE, Hx Known/Suspected VRSA, History Other Infectious Disease, Traveled Outside the [place] in Last 30 Days - Family History Known Family History: Negative: Hypertension, Diabetes - Social History Alcohol Use: Daily Alcohol Amount: GLASS OF WINE Hx Substance Use: No Substance Use Type: Reports: None Hx Tobacco Use: No Smoking Status (MU): Never Smoked Tobacco Review of Systems Negative: Blurred Vision Positive: Epistaxis - b/l initially but more on left now Negative: Other - neck pain Neurological/Mental Status: Other - Negative: LOC Positive: Headache All Other Systems Reviewed And Are Negative: Yes Physical Exam - Summary Physical Exam Summary: Constitutional: Well-developed, Well-nourished, Alert. (-) Distressed Skin: Warm, Dry HENT: Right-sided forehead contusion, Bruising over the bridge of the nose with rightwards nasal septal deviation, Slow bleed from the left nare. Eyes: Conjunctiva normal Neck: Musculoskeletal ROM normal neck. (-) JVD, (-) Stridor, (-) Tracheal deviation Cardio: Rhythm regular, rate normal, Heart sounds normal; Intact distal pulses; Radial pulses are 2+ and symmetric. (-) Murmur Pulmonary/Chest wall: Effort normal. (-) Respiratory distress, (-) Wheezes, (-) Rales Abd: Soft, (-) tenderness, (-) Distension, (-) Guarding, (-) Rebound Musculoskeletal: (-) Edema Lymph: (-) Cervical adenopathy Neuro: Alert, Oriented x3 Psych: Mood and affect Normal Triage Information Reviewed: Yes Vital Signs On Initial Exam: Initial Vitals Temp Pulse Resp BP Pulse Ox 98.8 F 84 18 167/94 96 11/16/19 14:34 11/16/19 14:34 11/16/19 14:34 11/16/19 14:34 11/16/19 14:34 Vital Signs Reviewed: Yes - Chavo Coma Scale Best Eye Response: 4 - Spontaneous Best Motor Response: 6 - Obeys Commands Best Verbal Response: 5 - Oriented Coma Scale Total: 15 Procedures - Procedure Summary Procedure Summary: Nasal Fracture/Epistaxis: Afrin nasal spray given through left nare. Unable to visualize specific bleed source. Topical Lidocaine applied. Anterior nasal packing placed. Bleed currently stopped. Will reassess. - Sedation Patient Received Moderate/Deep Sedation with Procedure: No Diagnostics - Vital Signs Vital Signs Temp Pulse Resp BP Pulse Ox 11/16/19 14:34 98.8 F 84 18 167/94 96 - Laboratory Lab Statement: Any lab studies that have been ordered have been reviewed, and results considered in the medical decision making process. - CT Brain CT CT Interpretation Completed By: Radiologist Summary of CT Findings: Impression: 1. Bilateral nasal bone fractures. 2. Mild chronic small vessel ischemic changes. 3. No acute intracranial pathology. ED physician has reviewed this report. Maxillofacial CT CT Interpretation Completed By: Radiologist Summary of CT Findings: Impression: 1. Bilateral nasal bone fractures. Rightward buckling of the probably fractured bony nasal septum. Blood products are scattered throughout the left nasal cavity and nasopharynx. 2. Right periorbital soft tissue swelling with a grossly unremarkable right globe and orbit. Dr. Louie has reviewed this report. Re-Evaluation - Re-Evaluation First Eval Re-Evaluation Time: 17:00 Change: Improved Comment: Nasal fracture/epistaxis procedure performed will success (see note). Second Eval Re-Evaluation Time: 17:35 Comment: Patient continues with suspended blood loss. She is safe for discharge with ENT follow up. EENT Course/Dx - Course Course Of Treatment: Patient is a 74 y/o F presenting with epistaxis of the left nare following mechanical fall this afternoon. States headache. No LOC, visual changes, neck pain. Currently on baby ASA for previous TIA. Physical exam reveals right-sided forehead contusion, bruising over the bridge of the nose with rightwards nasal septal deviation, slow bleed from the left nare. Brain CT is positive for bilateral nasal bone fractures. Maxillofacial CT reveals rightward buckling of probably fracture bony nasal septum with blood products scattered throughout the left nasal cavity and nasopharynx, right periorbital soft tissue swelling with a grossly unremarkable right globe and orbit. Patient received Percocet and Valium. Afrin nasal spray given through left nare. Unable to visualize specific bleed source. Topical Lidocaine applied. Anterior nasal packing placed. Bleed currently stopped. Will reassess. All results discussed with patient. Patient is safe for discharge. Patient is advised to follow up with ENT and PCP in 2-3 days. Rx for Doxycycline. Return precautions given. Patient agreeable with plan. - Diagnoses Provider Diagnoses: Forehead contusion, Nasal fracture Discharge ED - Sign-Out/Discharge Documenting (check all that apply): Patient Departure - Patient will be discharged home. - Discharge Plan Condition: Stable Disposition: HOME Prescriptions: DOXYcycline CAP(*) [DOXYcycline 100MG CAP(*)] 100 mg PO BID #10 cap Patient Education Materials: Nasal Fracture (ED), Facial Contusion (ED) Referrals: Mile Ribeiro MD [Primary Care Provider] - 3 Days Ben Parra MD [Medical Doctor] - 1 Day Additional Instructions: Please take medications as prescribed. Follow up with Dr. Parra from ENT in the next 1-2 days. Follow up with your primary care provider in 2-3 days. Return to the emergency department for any new or worsening symptoms. - Billing Disposition and Condition Condition: STABLE Disposition: Home - Attestation Statements Document Initiated by Amber: Yes Documenting Scribe: Mary Mercado Provider For Whom Amber is Documenting (Include Credential): Dalton Louie DO Scribmalgorzata Attestation: IMary, scribed for Dalton Louie DO on 11/17/19 at 0824. Scribe Documentation Reviewed: Yes Provider Attestation: The documentation as recorded by the Mary starr accurately reflects the service I personally performed and the decisions made by me, Dalton Louie DO Status of Scribe Document: Viewed
[2019-11-16] MEDS ORDERED: Oxymetazoline 0.05% NASAL SPR* 15 ML BTL BOTH NARES ONE (16:07)
[2019-11-16] MEDS ORDERED: Diazepam TAB(*) 5 MG PO ONE (16:12)
[2019-11-16] MEDS ORDERED: Lidocaine 2% JELLY* 10 ML JELLY TOPICAL ONE (16:35)
[2019-11-16] MEDS ORDERED: oxyCODONE/Acetamin 5/325 MG* TAB PO ONE (16:36)
[2019-11-16] MEDS ORDERED: Lidocaine 2% JELLY* 6 ML JELLY TOPICAL ONE (16:45)
[2019-11-16 18:11] VITALS: BP 106/68
== END 2019-11-16 18:10 | disposition home or self-care (01) ==
LOC: ED 14:33
DX: S02.2XXA Fracture of nasal bones, initial encounter for closed fracture (principal); R04.0 Epistaxis; S00.83XA Contusion of other part of head, initial encounter; R51 Headache; I44.7 Left bundle-branch block, unspecified; E78.5 Hyperlipidemia, unspecified; W19.XXXA Unspecified fall, initial encounter; Y92.9 Unspecified place or not applicable; E78.00 Pure hypercholesterolemia, unspecified; Z88.2 Allergy status to sulfonamides; Z88.0 Allergy status to penicillin; Z79.82 Long term (current) use of aspirin; Z79.02 Long term (current) use of antithrombotics/antiplatelets
CPT/HCPCS: 70450; 70486; 99282; A9270-GY